=== PATIENT | female | born 1945 | race American Indian/Alaskan Native ===

== ENCOUNTER 2018-07-02 13:42 | Emergency (ER) | payer MEDICARE ==
[2018-07-02 13:55] VITALS: BP 113/81
--- NOTE | 2018-07-02 13:55 | Emergency Department Report ---
Blank Doc - Documentation Documentation: This is a 72-year-old female that presents with bilateral leg pain and swelling. Left greater then right. Also has left calf pain. This initial assessment/diagnostic orders/clinical plan/treatment(s) is/are subject to change based on patient's health status, clinical progression and re- assessment by fellow clinical providers in the ED. Further treatment and workup at subsequent clinical providers discretion. Patient/guardians urged not to elope from the ED as their condition may be serious if not clinically assessed and managed. Initial orders include: 1- Patient sent to MAIN ED for further evaluation and treatment 2- labs 3- US doppler
[2018-07-02 14:32] LABS: Basophils % (Auto) 0.8 % (0.0-1.8); Eosinophils % (Auto) 0.3 % (0.0-4.3); Hematocrit 35.2 % (30.3-42.9); Hemoglobin 11.9 gm/dl (10.1-14.3); Lymphocytes # (Auto) 0.9 K/mm3 (1.2-5.4); Lymphocytes % (Auto) 23.4 % (13.4-35.0); Mean Corpuscular HGB Conc 34 % (30-34); Mean Corpuscular Volume 85 fl (79-97); Monocytes # (Auto) 0.4 K/mm3 (0.0-0.8); Monocytes % (Auto) 10.3 % (0.0-7.3); Platelet Count 209 K/mm3 (140-440); Red Blood Count 4.14 M/mm3 (3.65-5.03); Red Cell Distribution Width 14.5 % (13.2-15.2)
[2018-07-02 15:00] LABS: Alanine Aminotransferase 17 units/L (7-56); BUN/Creatinine Ratio 12; Blood Urea Nitrogen 20 mg/dL (7-17); Calcium 9.6 mg/dL (8.4-10.2); Hemolysis Index 4
--- NOTE | 2018-07-02 15:01 | XRay Report ---
AP CHEST: HISTORY: Leg swelling AP view of the chest demonstrates a normal mediastinal and cardiac contour with clear lungs and normal bony and soft tissue structures. IMPRESSION: Unremarkable AP chest.
[2018-07-02 15:03] LABS: Bilirubin,Direct < 0.2 mg/dL (0-0.2)
--- NOTE | 2018-07-02 15:27 | Vascular Lab Report ---
PROCEDURE: VL VENOUS DUPLEX LE LT TECHNIQUE: Duplex Doppler ultrasound examination of the left leg venous system HISTORY: left leg pain and swelling COMPARISONS: None FINDINGS: Normal compressibility, vascular patency, and augmentation are present diffusely throughout the visua lized portion of the deep veins. No abnormal intraluminal echoes are visualized to suggest deep vein thrombus. A nonspecific popliteal fossa hypoechoic focus is suggestive of a complex fluid collection measuring 0.7 x 4.0 cm. Color Doppler reveals no internal vascularity in this lesion. This may reflect a Ruth' s cyst. IMPRESSION: Popliteal fossa fluid collection suggestive of Ruth's cyst. No sonographic evidence of left leg DVT This document is electronically signed by Deondre Ken MD., July 02 2018 03:24:42 PM ET
--- NOTE | 2018-07-02 15:54 | Emergency Department Report ---
ED Lower Extremity HPI - General Chief Complaint: Extremity Problem,Nontraumatic Stated Complaint: BOTH LEGS SWOLLEN Time Seen by Provider: 07/02/18 13:53 Source: patient Mode of arrival: Wheelchair Limitations: No Limitations - History of Present Illness Initial Comments: Mrs. Norwood is a 72-year-old female who presents with several weeks of mild to moderate left knee pain and leg pain with swelling. She was evaluated by her ankle and medicare contact specialist Dr. Luz who referred her to the emergency department. She has had bilateral knee pain for several months. No history of trauma. No injury. MD Complaint: other (knee pain and leg pain) -: week(s) (several), month(s) (several) Injury: Leg: Left, Knee: Left, Right Place: home Severity: mild, moderate Worsens With: weight bearing, movement - Related Data Previous Rx's Medication Instructions Recorded Last Taken Type traMADol [Ultram 50 MG tab] 50 mg PO Q6HR PRN #10 tablet 07/02/18 Unknown Rx Allergies Allergy/AdvReac Type Severity Reaction Status Date / Time Iodine and Iodide Containing Allergy Anaphylaxis Verified 07/02/18 13:46 Produc ED Review of Systems ROS: Stated complaint: BOTH LEGS SWOLLEN Other details as noted in HPI Comment: All other systems reviewed and negative Constitutional: denies: fever, malaise Respiratory: denies: cough, shortness of breath Cardiovascular: denies: chest pain ED Past Medical Hx - Past Medical History Previous Medical History?: Yes Hx Hypertension: Yes - Surgical History Past Surgical History?: No - Social History Smoking Status: Never Smoker Substance Use Type: None - Medications Home Medications: Home Medications Medication Instructions Recorded Confirmed Last Taken Type traMADol [Ultram 50 MG tab] 50 mg PO Q6HR PRN #10 tablet 07/02/18 Unknown Rx ED Physical Exam - General Limitations: No Limitations General appearance: alert, in no apparent distress - Head Head exam: Present: atraumatic, normocephalic - Eye Eye exam: Present: normal appearance - ENT ENT exam: Present: mucous membranes moist - Neck Neck exam: Present: normal inspection - Respiratory Respiratory exam: Present: normal lung sounds bilaterally. Absent: respiratory distress, wheezes, rales, rhonchi - Cardiovascular Cardiovascular Exam: Present: regular rate, normal rhythm, normal heart sounds. Absent: systolic murmur, diastolic murmur, rubs, gallop - GI/Abdominal GI/Abdominal exam: Present: soft, normal bowel sounds. Absent: distended, tenderness, guarding, rebound - Extremities Exam Extremities exam: Present: pedal edema - Back Exam Back exam: Present: normal inspection - Neurological Exam Neurological exam: Present: alert, oriented X3 - Psychiatric Psychiatric exam: Present: normal affect, normal mood - Skin Skin exam: Present: warm, dry, intact, normal color. Absent: rash ED Course Vital Signs 07/02/18 13:53 Temperature 98.7 F Pulse Rate 98 H Respiratory 16 Rate Blood Pressure 113/81 O2 Sat by Pulse 98 Oximetry ED Lower Extremity MDM - Lab Data Result diagrams: 07/02/18 14:19 07/02/18 14:19 - Radiology Data Radiology results: report reviewed Left lower extremity Ruth cyst on ultrasound out DVT Chest x-ray AP portable chest without acute process - Medical Decision Making Left leg pain and swelling due to Ruth cysts prescribed tramadol referred to orthopedic surgeon, bilateral knee pain presumed to be DJD Critical care attestation.: If time is entered above; I have spent that time in minutes in the direct care of this critically ill patient, excluding procedure time. ED Disposition Clinical Impression: Bakers cyst Disposition: [id number] TO HOME OR SELFCARE Is pt being admited?: No Does the pt Need Aspirin: No Condition: Stable Instructions: Ruth's Cyst (ED) Prescriptions: traMADol [Ultram 50 MG tab] 50 mg PO Q6HR PRN #10 tablet PRN Reason: Pain Referrals: PJ BARNETT MD [Staff Physician] - 3-5 Days
== END 2018-07-02 16:09 | disposition home or self-care (01) ==
LOC: ED 13:42
DX: M71.22 Synovial cyst of popliteal space [Baker], left knee (principal); I10 Essential (primary) hypertension; Z91.018 Allergy to other foods
CPT/HCPCS: 36415; 71045; 80048; 80076; 83880; 85025